=== PATIENT | female | born 1945 | race Caucasian/White ===

== ENCOUNTER → 2016-11-14 | Outpatient (CLI) | payer MEDICARE ==
[~2016-11-14] MED LIST: ACET-1600 PO; CALC300T5 PO; CALCIUM ANTACID PO; CHOL2000 PO; DENO60DI IM; FOLI0.8T2 PO; GOLI50VI IV; METH25VI9 IM; METH4TAB PO; METO25TA35 PO; OMEP20CA9 PO; [UNRECOGNIZED DRUG - OTHER] PO
== END | disposition home or self-care (01) ==
LOC: CFH 07:46
PROVIDERS: ATTEND Internal Medicine
DX: N63 Unspecified lump in breast (principal); Z98.890 Other specified postprocedural states

== ENCOUNTER → 2016-11-19 | Outpatient (CLI) | payer MEDICARE | END | disposition home or self-care (01) | LOC: EDSTATUS 11-06 14:58 → ROC 10:19 | PROVIDERS: ATTEND Radiology Radiation Oncology | DX: C50.912 Malignant neoplasm of unspecified site of left female breast (principal); Z90.11 Acquired absence of right breast and nipple; Z85.42 Personal history of malignant neoplasm of other parts of uterus; K50.90 Crohn's disease, unspecified, without complications | CPT/HCPCS: G0463 ==

== ENCOUNTER → 2017-07-03 | Outpatient (CLI) | payer MEDICARE | END | disposition home or self-care (01) | LOC: CFH 15:03 | PROVIDERS: ATTEND Radiology Radiation Oncology | DX: Z12.31 Encounter for screening mammogram for malignant neoplasm of breast (principal); Z85.3 Personal history of malignant neoplasm of breast | CPT/HCPCS: 77063; G0202 ==

== ENCOUNTER → 2017-07-05 | Outpatient (CLI) | payer MEDICARE | END | disposition home or self-care (01) | LOC: ROC 09:29 | PROVIDERS: ATTEND Radiology Radiation Oncology | DX: Z08 Encounter for follow-up examination after completed treatment for malignant neoplasm (principal); Z85.3 Personal history of malignant neoplasm of breast; Z90.12 Acquired absence of left breast and nipple; Z92.3 Personal history of irradiation; Z88.0 Allergy status to penicillin; Z88.2 Allergy status to sulfonamides | CPT/HCPCS: G0463 ==